=== PATIENT | female | born 1940 | race African-American/Black ===

== ENCOUNTER 2017-07-16 21:05 | Inpatient (IN) | payer MEDICARE, BC ==
[2017-07-16] MEDS: DEXTROSE 5%-0.45% NACL 1,000 ML IV (23:29)
[2017-07-17] MEDS ORDERED: INSULIN ASPART [NOVOLOG] 3 ML PEN SC (01:00)
[2017-07-17] MEDS: INSULIN ASPART [NOVOLOG] 3 ML PEN SC ×6 (01:00→21:00)
[2017-07-17] MEDS: ALBUTEROL HFA 8 GM INHALER INH ×2 (01:57→19:38)
[2017-07-17] MEDS ORDERED: ONDANSETRON 4 MG INJ IV (06:00)
[2017-07-17] MEDS ORDERED: VANCOMYCIN IV PER PHARMACY XX (06:00)
[2017-07-17] MEDS ORDERED: NACL 0.9% 3 ML SYG IV (06:00)
[2017-07-17] MEDS ORDERED: GLUCOSE GEL 15 GRAM TUBE BUCCAL (06:30)
[2017-07-17] MEDS ORDERED: GLUCAGON 1 MG INJ IM (06:30)
[2017-07-17] MEDS ORDERED: DEXTROSE 50% 50 ML SYRINGE IV ×2 (06:30)
[2017-07-17] MEDS ORDERED: GLUCOSE GEL 15 GRAM TUBE PO ×2 (06:30)
[2017-07-17] MEDS ORDERED: PENDING SANTYL ORDER FOR WOUND CARE XX (08:00)
[2017-07-17 08:57] LABS: ADD MAN DIFF? NO
[2017-07-17 09:04] LABS: EOSINOPHILS # 0.1 10^3/ul (0.0-0.5); EOSINOPHILS % 1.4 % (0.0-7.0); HEMATOCRIT 24.5 % (37.0-47.0); HEMOGLOBIN 7.8 g/dl (12.0-16.0); LYMPHOCYTES # 0.9 10^3/ul (0.8-2.9); LYMPHOCYTES % 15.4 % (15.0-51.0); MEAN CORPUSCULAR HEMOGLOBIN 30.4 pg (29.0-33.0); MEAN CORPUSCULAR HGB CONC 31.8 g/dl (32.0-37.0); MEAN CORPUSCULAR VOLUME 95.3 fl (82.0-101.0); MEAN PLATELET VOLUME 12.5 fl (7.4-10.4); MONOCYTE # 0.8 10^3/ul (0.3-0.9); MONOCYTES % 13.9 % (0.0-11.0); NEUTROPHIL # 4.1 10^3/ul (1.6-7.5); PLATELET COUNT 144 10^3/UL (140-415); RED BLOOD COUNT 2.57 10^6/ul (4.20-5.40); RED CELL DISTRIBUTION WIDTH 15.4 % (11.5-14.5)
[2017-07-17 09:04] LABS: WHITE BLOOD COUNT 5.9 10^3/ul (4.8-10.8)
[2017-07-17 09:20] LABS: IRON 46 ug/dl (35-150)
[2017-07-17 09:27] LABS: ALANINE AMINOTRANSFERASE 25 IU/L (13-69); ALBUMIN 2.2 g/dl (3.3-4.9); ALBUMIN/GLOBULIN RATIO 0.66; ALKALINE PHOSPHATASE 72 IU/L (42-121); ANION GAP 10 (8-16); ASPARTATE AMINO TRANSFERASE 26 IU/L (15-46); BILIRUBIN,INDIRECT 0.1 mg/dl (0-1.1); BILIRUBIN,TOTAL 0.1 mg/dl (0.2-1.3); BLOOD UREA NITROGEN 21 mg/dl (7-20); CALCIUM 8.2 mg/dl (8.4-10.2); CARBON DIOXIDE 34 mmol/L (21-31); CHLORIDE 97 mmol/L (97-110); CREATININE 0.96 mg/dl (0.44-1.00); GLUCOSE 149 mg/dl (70-220); POTASSIUM 3.6 mmol/L (3.5-5.1); SODIUM 137 mmol/L (135-144); TOTAL PROTEIN 5.5 g/dl (6.1-8.1)
[2017-07-17 09:30] LABS: % IRON SATURATION 31 % SAT (22-52); TOTAL IRON BINDING CAPACITY 148 ug/dl (241-421)
[2017-07-17] MEDS: CEFEPIME 1GM/50 ML (PMX) 50 ML IVPB ×2 (09:36→21:51)
[2017-07-17] MEDS: VANCOMYCIN 1 GM 250 ML IVPB ×2 (09:36→12:13)
[2017-07-17] MEDS: ENOXAPARIN 40 MG/0.4 ML SYG SC (16:14)
[2017-07-17] MEDS: DEXTROSE 5%-0.45% NACL 1,000 ML IV (16:33)
[2017-07-17] MEDS: HYDROmorphONE 2 MG/ML SYG IV (19:42)
[2017-07-17] MEDS: LORAZEPAM 2 MG INJ IV (19:43)
[2017-07-17] MEDS: LIDOCAINE 1% (MDV) 20 ML INJ SC (19:44)
[2017-07-17] MEDS: SOD CHLORIDE 0.9% 250 ML IV* (21:45)
[2017-07-18] MEDS: VANCOMYCIN 1 GM 250 ML IVPB ×2 (00:20→13:35)
[2017-07-18] MEDS: hydrALAzine 20 MG INJ IV ×3 (00:21→20:09)
[2017-07-18] MEDS: INSULIN ASPART [NOVOLOG] 3 ML PEN SC ×6 (01:00→21:00)
[2017-07-18] MEDS: DEXTROSE 5%-0.45% NACL 1,000 ML IV ×2 (01:10→20:15)
[2017-07-18] MEDS: ALBUTEROL HFA 8 GM INHALER INH ×3 (01:40→20:46)
[2017-07-18 08:52] LABS: ADD MAN DIFF? NO
[2017-07-18 09:03] LABS: EOSINOPHILS # 0.1 10^3/ul (0.0-0.5); EOSINOPHILS % 0.7 % (0.0-7.0); HEMOGLOBIN 7.9 g/dl (12.0-16.0); LYMPHOCYTES # 0.9 10^3/ul (0.8-2.9); LYMPHOCYTES % 11.2 % (15.0-51.0); MEAN CORPUSCULAR HEMOGLOBIN 30.3 pg (29.0-33.0); MEAN CORPUSCULAR HGB CONC 31.6 g/dl (32.0-37.0); MEAN CORPUSCULAR VOLUME 95.8 fl (82.0-101.0); MEAN PLATELET VOLUME 12.2 fl (7.4-10.4); MONOCYTE # 1.2 10^3/ul (0.3-0.9); MONOCYTES % 15.3 % (0.0-11.0); NEUTROPHIL # 5.5 10^3/ul (1.6-7.5); NEUTROPHILS % 72.4 % (39.0-77.0); PLATELET COUNT 150 10^3/UL (140-415); RED BLOOD COUNT 2.61 10^6/ul (4.20-5.40); RED CELL DISTRIBUTION WIDTH 15.5 % (11.5-14.5)
[2017-07-18 09:03] LABS: WHITE BLOOD COUNT 7.6 10^3/ul (4.8-10.8)
[2017-07-18] MEDS: CEFEPIME 1GM/50 ML (PMX) 50 ML IVPB ×2 (09:10→20:08)
[2017-07-18] MEDS: ENOXAPARIN 40 MG/0.4 ML SYG SC (09:22)
[2017-07-18 10:07] LABS: ANION GAP 8 (8-16); BLOOD UREA NITROGEN 18 mg/dl (7-20); CALCIUM 8.3 mg/dl (8.4-10.2); CARBON DIOXIDE 34 mmol/L (21-31); CHLORIDE 98 mmol/L (97-110); CREATININE 0.94 mg/dl (0.44-1.00); GLUCOSE 147 mg/dl (70-220); MAGNESIUM 1.7 mg/dl (1.7-2.5); PHOSPHORUS 2.6 mg/dl (2.5-4.9); POTASSIUM 3.4 mmol/L (3.5-5.1); SODIUM 137 mmol/L (135-144)
[2017-07-18] MEDS: HYDROmorphONE 0.5 MG/0.5 ML SYG IV (13:35)
[2017-07-18 14:53] LABS: HEMATOCRIT 22.1 % (37.0-47.0)
[2017-07-18] MEDS ORDERED: POTASSIUM CHLORIDE (SR) 10 MEQ TAB PO (15:30)
[2017-07-18] MEDS ORDERED: POTASSIUM CHLORIDE 50 ML IVPB (18:00)
[2017-07-18] MEDS: POTASSIUM CHLORIDE 30 MEQ in SOD CHLORIDE 0.9% 150 ML IV (21:09)
[2017-07-18 23:43] LABS: VANCOMYCIN,TROUGH 17.9 ug/ml (10.0-20.0)
[2017-07-19] MEDS: VANCOMYCIN 1 GM 250 ML IVPB (00:40)
[2017-07-19] MEDS: INSULIN ASPART [NOVOLOG] 3 ML PEN SC ×6 (00:52→20:47)
[2017-07-19] MEDS: ALBUTEROL HFA 8 GM INHALER INH ×4 (01:29→19:10)
[2017-07-19] MEDS: DEXTROSE 5%-0.45% NACL 1,000 ML IV ×2 (03:50→17:10)
[2017-07-19] MEDS: CEFEPIME 1GM/50 ML (PMX) 50 ML IVPB (08:40)
[2017-07-19 10:00] LABS: ADD MAN DIFF? NO
[2017-07-19 10:05] LABS: WHITE BLOOD COUNT 8.3 10^3/ul (4.8-10.8)
[2017-07-19 10:05] LABS: ABNORMAL IP MESSAGE 1; EOSINOPHILS % 0.2 % (0.0-7.0); HEMATOCRIT 19.3 % (37.0-47.0); LYMPHOCYTES # 0.9 10^3/ul (0.8-2.9); LYMPHOCYTES % 10.9 % (15.0-51.0); MEAN CORPUSCULAR HEMOGLOBIN 30.2 pg (29.0-33.0); MEAN CORPUSCULAR HGB CONC 32.1 g/dl (32.0-37.0); MEAN CORPUSCULAR VOLUME 94.1 fl (82.0-101.0); MEAN PLATELET VOLUME 11.9 fl (7.4-10.4); MONOCYTE # 1.3 10^3/ul (0.3-0.9); MONOCYTES % 16.2 % (0.0-11.0); NEUTROPHILS % 72.5 % (39.0-77.0); PLATELET COUNT 122 10^3/UL (140-415); RED BLOOD COUNT 2.05 10^6/ul (4.20-5.40); RED CELL DISTRIBUTION WIDTH 15.7 % (11.5-14.5)
[2017-07-19 10:09] LABS: POSITIVE DIFF @See below
[2017-07-19 10:11] LABS: HEMOGLOBIN 6.2 g/dl (12.0-16.0); PATH REVIEW? YES
[2017-07-19 10:35] LABS: ANION GAP 5 (8-16); BLOOD UREA NITROGEN 18 mg/dl (7-20); CALCIUM 7.8 mg/dl (8.4-10.2); CARBON DIOXIDE 35 mmol/L (21-31); CHLORIDE 101 mmol/L (97-110); CREATININE 1.03 mg/dl (0.44-1.00); GLUCOSE 142 mg/dl (70-220); POTASSIUM 3.6 mmol/L (3.5-5.1); SODIUM 137 mmol/L (135-144)
[2017-07-19] MEDS: ACETAMINOPHEN 650 MG SUPP PR (11:14)
[2017-07-19 12:33] LABS: IMMEDIATE SPIN CROSSMATCH 1 3
[2017-07-19] MEDS: HYDROmorphONE 0.5 MG/0.5 ML SYG IV (18:34)
[2017-07-19] MEDS: MEROPENEM 500MG/50 ML (PMX) 50 ML IVPB (20:46)
[2017-07-20] MEDS: VANCOMYCIN 1.25 GM in SOD CHLORIDE 0.9% 250 ML IVPB ×2 (00:34→23:56)
[2017-07-20] MEDS: INSULIN ASPART [NOVOLOG] 3 ML PEN SC ×6 (00:35→20:09)
[2017-07-20] MEDS: ALBUTEROL HFA 8 GM INHALER INH ×4 (01:55→19:37)
[2017-07-20] MEDS: hydrALAzine 20 MG INJ IV ×2 (04:22→11:39)
[2017-07-20] MEDS: DEXTROSE 5%-0.45% NACL 1,000 ML IV ×2 (06:30→20:10)
[2017-07-20 07:49] LABS: ADD MAN DIFF? NO
[2017-07-20 07:52] LABS: WHITE BLOOD COUNT 9.1 10^3/ul (4.8-10.8)
[2017-07-20 07:52] LABS: BASOPHILS % 0.1 % (0.0-2.0); EOSINOPHILS # 0.1 10^3/ul (0.0-0.5); EOSINOPHILS % 0.5 % (0.0-7.0); LYMPHOCYTES % 11.2 % (15.0-51.0); MEAN CORPUSCULAR HEMOGLOBIN 30.1 pg (29.0-33.0); MEAN CORPUSCULAR HGB CONC 33.3 g/dl (32.0-37.0); MEAN CORPUSCULAR VOLUME 90.3 fl (82.0-101.0); MEAN PLATELET VOLUME 11.8 fl (7.4-10.4); MONOCYTE # 1.5 10^3/ul (0.3-0.9); MONOCYTES % 16.1 % (0.0-11.0); NEUTROPHIL # 6.6 10^3/ul (1.6-7.5); NEUTROPHILS % 71.7 % (39.0-77.0); PLATELET COUNT 152 10^3/UL (140-415); RED BLOOD COUNT 2.99 10^6/ul (4.20-5.40); RED CELL DISTRIBUTION WIDTH 16.3 % (11.5-14.5)
[2017-07-20 08:25] LABS: ANION GAP 12 (8-16); BLOOD UREA NITROGEN 17 mg/dl (7-20); CALCIUM 8.4 mg/dl (8.4-10.2); CARBON DIOXIDE 32 mmol/L (21-31); CHLORIDE 100 mmol/L (97-110); CREATININE 1.01 mg/dl (0.44-1.00); GLUCOSE 145 mg/dl (70-220); POTASSIUM 3.4 mmol/L (3.5-5.1); SODIUM 141 mmol/L (135-144)
[2017-07-20] MEDS: MEROPENEM 500MG/50 ML (PMX) 50 ML IVPB ×2 (10:21→20:09)
[2017-07-20] MEDS ORDERED: POTASSIUM CHLORIDE (SR) 20 MEQ TAB PO (13:55)
[2017-07-20] MEDS: POTASSIUM CHLORIDE 100 ML IVPB (17:13)
[2017-07-21] MEDS: INSULIN ASPART [NOVOLOG] 3 ML PEN SC ×6 (00:01→21:00)
[2017-07-21] MEDS: ALBUTEROL HFA 8 GM INHALER INH ×4 (02:04→20:08)
[2017-07-21] MEDS: HYDROmorphONE 0.5 MG/0.5 ML SYG IV (04:09)
[2017-07-21] MEDS: hydrALAzine 20 MG INJ IV ×3 (04:12→11:31)
[2017-07-21 08:19] LABS: ADD MAN DIFF? NO
[2017-07-21 08:24] LABS: WHITE BLOOD COUNT 7.8 10^3/ul (4.8-10.8)
[2017-07-21 08:24] LABS: BASOPHILS % 0.1 % (0.0-2.0); EOSINOPHILS # 0.1 10^3/ul (0.0-0.5); HEMATOCRIT 23.8 % (37.0-47.0); HEMOGLOBIN 7.8 g/dl (12.0-16.0); LYMPHOCYTES # 1.3 10^3/ul (0.8-2.9); LYMPHOCYTES % 16.8 % (15.0-51.0); MEAN CORPUSCULAR HEMOGLOBIN 29.8 pg (29.0-33.0); MEAN CORPUSCULAR HGB CONC 32.8 g/dl (32.0-37.0); MEAN CORPUSCULAR VOLUME 90.8 fl (82.0-101.0); MONOCYTE # 1.3 10^3/ul (0.3-0.9); MONOCYTES % 16.2 % (0.0-11.0); NEUTROPHIL # 5.1 10^3/ul (1.6-7.5); NEUTROPHILS % 65.6 % (39.0-77.0); PLATELET COUNT 157 10^3/UL (140-415); RED BLOOD COUNT 2.62 10^6/ul (4.20-5.40); RED CELL DISTRIBUTION WIDTH 15.9 % (11.5-14.5)
[2017-07-21] MEDS: MEROPENEM 500MG/50 ML (PMX) 50 ML IVPB ×2 (08:50→21:07)
[2017-07-21] MEDS: DEXTROSE 5%-0.45% NACL 1,000 ML IV ×2 (08:54→21:10)
[2017-07-21 09:04] LABS: ANION GAP 8 (8-16); BLOOD UREA NITROGEN 16 mg/dl (7-20); CALCIUM 8.3 mg/dl (8.4-10.2); CARBON DIOXIDE 31 mmol/L (21-31); CHLORIDE 103 mmol/L (97-110); CREATININE 0.97 mg/dl (0.44-1.00); GLUCOSE 146 mg/dl (70-220); POTASSIUM 3.3 mmol/L (3.5-5.1); SODIUM 139 mmol/L (135-144)
[2017-07-21] MEDS: ACCU-CHEK XX ×3 (15:30→21:09)
[2017-07-21 16:30] LABS: ALANINE AMINOTRANSFERASE 25 IU/L (13-69); ALBUMIN 1.9 g/dl (3.3-4.9); ALBUMIN/GLOBULIN RATIO 0.63; ALKALINE PHOSPHATASE 65 IU/L (42-121); ANION GAP 7 (8-16); ASPARTATE AMINO TRANSFERASE 16 IU/L (15-46); BILIRUBIN,INDIRECT 0.1 mg/dl (0-1.1); BILIRUBIN,TOTAL 0.1 mg/dl (0.2-1.3); BLOOD UREA NITROGEN 15 mg/dl (7-20); CARBON DIOXIDE 32 mmol/L (21-31); CHLORIDE 103 mmol/L (97-110); CREATININE 1.07 mg/dl (0.44-1.00); GLUCOSE 136 mg/dl (70-220); MAGNESIUM 1.8 mg/dl (1.7-2.5); PHOSPHORUS 1.9 mg/dl (2.5-4.9); POTASSIUM 3.2 mmol/L (3.5-5.1); SODIUM 139 mmol/L (135-144); TOTAL PROTEIN 4.9 g/dl (6.1-8.1); TRIGLYCERIDES 62 mg/dl (0-149)
[2017-07-21 16:37] LABS: PREALBUMIN 5.4 mg/dl (17.6-36.0)
[2017-07-21] MEDS: POTASSIUM CHLORIDE 100 ML IVPB (17:31)
[2017-07-22] MEDS: INSULIN ASPART [NOVOLOG] 3 ML PEN SC ×6 (01:00→21:00)
[2017-07-22] MEDS: ACCU-CHEK XX ×6 (01:55→21:22)
[2017-07-22] MEDS: VANCOMYCIN 1.25 GM in SOD CHLORIDE 0.9% 250 ML IVPB (01:55)
[2017-07-22] MEDS: ALBUTEROL HFA 8 GM INHALER INH ×4 (02:26→19:52)
[2017-07-22] MEDS: MEROPENEM 500MG/50 ML (PMX) 50 ML IVPB (08:27)
[2017-07-22 08:36] LABS: ADD MAN DIFF? NO
[2017-07-22 08:44] LABS: BASOPHILS % 0.3 % (0.0-2.0); EOSINOPHILS # 0.1 10^3/ul (0.0-0.5); HEMATOCRIT 23.6 % (37.0-47.0); HEMOGLOBIN 7.7 g/dl (12.0-16.0); LYMPHOCYTES # 1.4 10^3/ul (0.8-2.9); MEAN CORPUSCULAR HEMOGLOBIN 30.1 pg (29.0-33.0); MEAN CORPUSCULAR HGB CONC 32.6 g/dl (32.0-37.0); MEAN CORPUSCULAR VOLUME 92.2 fl (82.0-101.0); MEAN PLATELET VOLUME 11.4 fl (7.4-10.4); MONOCYTE # 1.3 10^3/ul (0.3-0.9); MONOCYTES % 16.8 % (0.0-11.0); NEUTROPHIL # 5.1 10^3/ul (1.6-7.5); NEUTROPHILS % 64.4 % (39.0-77.0); PLATELET COUNT 189 10^3/UL (140-415); RED BLOOD COUNT 2.56 10^6/ul (4.20-5.40); RED CELL DISTRIBUTION WIDTH 15.6 % (11.5-14.5)
[2017-07-22 09:02] LABS: PHOSPHORUS 2.1 mg/dl (2.5-4.9)
[2017-07-22 09:02] LABS: MAGNESIUM 1.8 mg/dl (1.7-2.5)
[2017-07-22 09:09] LABS: ANION GAP 8 (8-16); BLOOD UREA NITROGEN 15 mg/dl (7-20); CALCIUM 8.2 mg/dl (8.4-10.2); CARBON DIOXIDE 33 mmol/L (21-31); CHLORIDE 103 mmol/L (97-110); CREATININE 1.01 mg/dl (0.44-1.00); GLUCOSE 134 mg/dl (70-220); POTASSIUM 3.4 mmol/L (3.5-5.1); SODIUM 141 mmol/L (135-144)
[2017-07-22] MEDS: hydrALAzine 20 MG INJ IV ×2 (09:13→11:59)
[2017-07-22] MEDS: DEXTROSE 5%-0.45% NACL 1,000 ML IV (11:50)
[2017-07-22] MEDS: LIDOCAINE 1% (MPF) 5 ML VIAL SC (12:55)
[2017-07-22] MEDS: CLONIDINE 0.2 MG/24 HR PATCH TRANSDERM (13:34)
[2017-07-22] MEDS: ACETAMINOPHEN 650 MG SUPP PR (14:40)
[2017-07-22] MEDS: POTASSIUM PHOSPHATE 15 MM in SOD CHLORIDE 0.9% 250 ML IVPB (15:00)
[2017-07-22] MEDS: CIPROFLOXACIN 400MG/D5W 200 ML IVPB (21:22)
[2017-07-23] MEDS: INSULIN ASPART [NOVOLOG] 3 ML PEN SC ×6 (01:00→21:00)
[2017-07-23] MEDS: ALBUTEROL HFA 8 GM INHALER INH ×4 (01:32→19:18)
[2017-07-23] MEDS: DEXTROSE 5%-0.45% NACL 1,000 ML IV ×2 (01:37→14:30)
[2017-07-23] MEDS: ACCU-CHEK XX ×6 (01:37→21:00)
[2017-07-23] MEDS: HYDROmorphONE 0.5 MG/0.5 ML SYG IV (03:25)
[2017-07-23] MEDS: CIPROFLOXACIN 400MG/D5W 200 ML IVPB ×2 (08:38→21:59)
[2017-07-23 09:27] LABS: ADD MAN DIFF? NO
[2017-07-23 09:34] LABS: WHITE BLOOD COUNT 7.9 10^3/ul (4.8-10.8)
[2017-07-23 09:34] LABS: BASOPHILS % 0.3 % (0.0-2.0); EOSINOPHILS # 0.1 10^3/ul (0.0-0.5); EOSINOPHILS % 1.4 % (0.0-7.0); HEMATOCRIT 25.7 % (37.0-47.0); HEMOGLOBIN 8.2 g/dl (12.0-16.0); LYMPHOCYTES # 1.4 10^3/ul (0.8-2.9); MEAN CORPUSCULAR HGB CONC 31.9 g/dl (32.0-37.0); MEAN CORPUSCULAR VOLUME 94.1 fl (82.0-101.0); MEAN PLATELET VOLUME 11.3 fl (7.4-10.4); MONOCYTE # 1.2 10^3/ul (0.3-0.9); MONOCYTES % 14.9 % (0.0-11.0); NEUTROPHIL # 5.1 10^3/ul (1.6-7.5); NEUTROPHILS % 65.1 % (39.0-77.0); PLATELET COUNT 206 10^3/UL (140-415); RED BLOOD COUNT 2.73 10^6/ul (4.20-5.40); RED CELL DISTRIBUTION WIDTH 15.8 % (11.5-14.5)
[2017-07-23 09:59] LABS: PHOSPHORUS 2.7 mg/dl (2.5-4.9)
[2017-07-23 09:59] LABS: MAGNESIUM 1.8 mg/dl (1.7-2.5)
[2017-07-23 10:07] LABS: ALANINE AMINOTRANSFERASE 23 IU/L (13-69); ALBUMIN 2.1 g/dl (3.3-4.9); ALBUMIN/GLOBULIN RATIO 0.63; ALKALINE PHOSPHATASE 69 IU/L (42-121); ANION GAP 8 (8-16); ASPARTATE AMINO TRANSFERASE 18 IU/L (15-46); BILIRUBIN,INDIRECT 0.1 mg/dl (0-1.1); BILIRUBIN,TOTAL 0.1 mg/dl (0.2-1.3); BLOOD UREA NITROGEN 15 mg/dl (7-20); CALCIUM 8.1 mg/dl (8.4-10.2); CARBON DIOXIDE 34 mmol/L (21-31); CHLORIDE 104 mmol/L (97-110); CREATININE 1.06 mg/dl (0.44-1.00); GLUCOSE 125 mg/dl (70-220); POTASSIUM 3.5 mmol/L (3.5-5.1); SODIUM 142 mmol/L (135-144); TOTAL PROTEIN 5.4 g/dl (6.1-8.1)
[2017-07-23 19:16] LABS: OCCULT BLOOD STOOL NEGATIVE (NEGATIVE)
[2017-07-24] MEDS: ACCU-CHEK XX ×6 (01:00→21:00)
[2017-07-24] MEDS: INSULIN ASPART [NOVOLOG] 3 ML PEN SC ×6 (01:00→21:00)
[2017-07-24] MEDS: ALBUTEROL HFA 8 GM INHALER INH ×4 (01:11→20:16)
[2017-07-24] MEDS: HYDROmorphONE 0.5 MG/0.5 ML SYG IV ×2 (03:57→23:07)
[2017-07-24] MEDS: DEXTROSE 5%-0.45% NACL 1,000 ML IV ×2 (03:57→21:37)
[2017-07-24] MEDS: SOD CHLORIDE 0.9% 500 ML IV (06:40)
[2017-07-24] MEDS: CIPROFLOXACIN 400MG/D5W 200 ML IVPB ×2 (09:39→21:37)
[2017-07-25] MEDS: INSULIN ASPART [NOVOLOG] 3 ML PEN SC ×4 (01:00→17:50)
[2017-07-25] MEDS: ALBUTEROL HFA 8 GM INHALER INH ×3 (01:20→20:00)
[2017-07-25] MEDS: ACCU-CHEK XX ×6 (01:58→21:00)
[2017-07-25] MEDS: DEXTROSE 5%-0.45% NACL 1,000 ML IV (06:42)
[2017-07-25] MEDS: CIPROFLOXACIN 400MG/D5W 200 ML IVPB ×2 (09:19→21:13)
[2017-07-26] MEDS: ALBUTEROL HFA 8 GM INHALER INH ×4 (01:37→19:37)
[2017-07-26] MEDS: HYDROmorphONE 0.5 MG/0.5 ML SYG IV ×2 (03:34→16:29)
[2017-07-26] MEDS: INSULIN ASPART [NOVOLOG] 3 ML PEN SC ×4 (05:46→18:00)
[2017-07-26] MEDS: CIPROFLOXACIN 400MG/D5W 200 ML IVPB ×2 (09:31→20:32)
[2017-07-26] MEDS ORDERED: BARIUM SULF 2% 450 ML BTL (BERRY SMOOTHIE) PO (13:30)
[2017-07-26] MEDS: IOHEXOL 14.3 MG(I)/ML (ADULT) BTL PO (14:22)
[2017-07-26] MEDS: IOHEXOL 300MG/ML 150 ML BTL (16:21)
[2017-07-26] MEDS: SOD CHLORIDE 0.9% 100 ML (16:21)
[2017-07-26] MEDS: hydrALAzine 20 MG INJ IV (20:32)
[2017-07-27] MEDS: ALBUTEROL HFA 8 GM INHALER INH ×4 (01:16→19:43)
[2017-07-27] MEDS: HYDROmorphONE 0.5 MG/0.5 ML SYG IV ×3 (04:29→17:40)
[2017-07-27] MEDS: INSULIN ASPART [NOVOLOG] 3 ML PEN SC ×4 (06:00→18:07)
[2017-07-27] MEDS: CIPROFLOXACIN 400MG/D5W 200 ML IVPB ×2 (09:26→21:29)
[2017-07-28] MEDS: ALBUTEROL HFA 8 GM INHALER INH ×4 (01:09→20:50)
[2017-07-28] MEDS: INSULIN ASPART [NOVOLOG] 3 ML PEN SC ×4 (06:00→17:34)
[2017-07-28] MEDS ORDERED: LIDOCAINE 1% (MDV) 20 ML INJ (06:34)
[2017-07-28 07:55] LABS: ADD MAN DIFF? NO
[2017-07-28 07:57] LABS: BASOPHILS % 0.1 % (0.0-2.0); EOSINOPHILS # 0.2 10^3/ul (0.0-0.5); EOSINOPHILS % 1.6 % (0.0-7.0); HEMATOCRIT 24.5 % (37.0-47.0); HEMOGLOBIN 7.9 g/dl (12.0-16.0); LYMPHOCYTES # 1.3 10^3/ul (0.8-2.9); MEAN CORPUSCULAR HGB CONC 32.2 g/dl (32.0-37.0); MEAN CORPUSCULAR VOLUME 93.2 fl (82.0-101.0); MEAN PLATELET VOLUME 10.8 fl (7.4-10.4); MONOCYTE # 1.1 10^3/ul (0.3-0.9); MONOCYTES % 11.8 % (0.0-11.0); NEUTROPHIL # 7.1 10^3/ul (1.6-7.5); PLATELET COUNT 215 10^3/UL (140-415); RED BLOOD COUNT 2.63 10^6/ul (4.20-5.40); RED CELL DISTRIBUTION WIDTH 14.6 % (11.5-14.5)
[2017-07-28 07:57] LABS: WHITE BLOOD COUNT 9.7 10^3/ul (4.8-10.8)
[2017-07-28 08:25] LABS: ANION GAP 9 (8-16); BLOOD UREA NITROGEN 22 mg/dl (7-20); CALCIUM 8.1 mg/dl (8.4-10.2); CARBON DIOXIDE 33 mmol/L (21-31); CHLORIDE 101 mmol/L (97-110); CREATININE 1.33 mg/dl (0.44-1.00); GLUCOSE 145 mg/dl (70-220); MAGNESIUM 1.9 mg/dl (1.7-2.5); POTASSIUM 4.3 mmol/L (3.5-5.1); SODIUM 139 mmol/L (135-144)
[2017-07-28 08:27] LABS: PREALBUMIN 6.8 mg/dl (17.6-36.0)
[2017-07-28] MEDS: CIPROFLOXACIN 400MG/D5W 200 ML IVPB ×2 (09:31→21:58)
[2017-07-28] MEDS: MULTIVITAMINS THERAPEUTIC TAB NGT (12:12)
[2017-07-28] MEDS: SOD CHLORIDE 0.9% 1,000 ML IV ×2 (12:12→17:30)
[2017-07-28] MEDS: ZINC SULFATE 220 MG CAP NGT (12:12)
[2017-07-28] MEDS: ASCORBIC ACID 500 MG TAB NGT (12:12)
[2017-07-28] MEDS: HYDROmorphONE 0.5 MG/0.5 ML SYG IV (14:29)
[2017-07-28] MEDS: LORAZEPAM 2 MG INJ IV (14:30)
[2017-07-29] MEDS: ALBUTEROL HFA 8 GM INHALER INH ×4 (01:39→20:11)
[2017-07-29] MEDS: SOD CHLORIDE 0.9% 1,000 ML IV (02:00)
[2017-07-29] MEDS: INSULIN ASPART [NOVOLOG] 3 ML PEN SC ×4 (06:00→18:22)
[2017-07-29 07:00] LABS: ADD MAN DIFF? NO
[2017-07-29 07:07] LABS: ABNORMAL IP MESSAGE 1; EOSINOPHILS # 0.2 10^3/ul (0.0-0.5); EOSINOPHILS % 1.7 % (0.0-7.0); HEMATOCRIT 18.4 % (37.0-47.0); LYMPHOCYTES # 1.3 10^3/ul (0.8-2.9); MEAN CORPUSCULAR HEMOGLOBIN 30.3 pg (29.0-33.0); MEAN CORPUSCULAR HGB CONC 32.6 g/dl (32.0-37.0); MEAN CORPUSCULAR VOLUME 92.9 fl (82.0-101.0); MEAN PLATELET VOLUME 11.7 fl (7.4-10.4); MONOCYTE # 1.1 10^3/ul (0.3-0.9); MONOCYTES % 12.3 % (0.0-11.0); NEUTROPHIL # 6.6 10^3/ul (1.6-7.5); NEUTROPHILS % 71.4 % (39.0-77.0); PLATELET COUNT 210 10^3/UL (140-415); RED BLOOD COUNT 1.98 10^6/ul (4.20-5.40); RED CELL DISTRIBUTION WIDTH 14.6 % (11.5-14.5)
[2017-07-29 07:07] LABS: WHITE BLOOD COUNT 9.3 10^3/ul (4.8-10.8)
[2017-07-29 07:14] LABS: POSITIVE DIFF @See below
[2017-07-29 07:43] LABS: ANION GAP 10 (8-16); BLOOD UREA NITROGEN 23 mg/dl (7-20); CALCIUM 7.9 mg/dl (8.4-10.2); CARBON DIOXIDE 31 mmol/L (21-31); CHLORIDE 102 mmol/L (97-110); CREATININE 1.33 mg/dl (0.44-1.00); GLUCOSE 146 mg/dl (70-220); MAGNESIUM 1.9 mg/dl (1.7-2.5); SODIUM 139 mmol/L (135-144)
[2017-07-29] MEDS: ASCORBIC ACID 500 MG TAB NGT (09:06)
[2017-07-29] MEDS: ZINC SULFATE 220 MG CAP NGT (09:06)
[2017-07-29] MEDS: MULTIVITAMINS THERAPEUTIC TAB NGT (09:06)
[2017-07-29] MEDS: CIPROFLOXACIN 400MG/D5W 200 ML IVPB (09:06)
[2017-07-29 09:39] LABS: BAND NEUTROPHILS #M 0.2 10^3/ul (0.0-0.6); BAND NEUTROPHILS % (M) 3 % (0-4); GIANT THROMBO% (M) 2 % (0-0); LYMPHOCYTES #M 1.3 10^3/ul (0.8-2.9); LYMPHOCYTES % (M) 14 % (15-51); MONOCYTE #M 0.8 10^3/ul (0.3-0.9); MONOCYTES % (M) 9 % (0-11); PLATELET ESTIMATE NORMAL; POLYCHROMASIA 3+ (0-0); REACTIVE LYMPHOCYTES% (M) 1 % (0-0); SEG NEUT #M 6.8 10^3/ul (1.6-7.5); SEGMENTED NEUTROPHILS (M) % 73 % (39-77); SMUDGE%M 17 % (0-0)
[2017-07-29] MEDS: CLONIDINE 0.2 MG/24 HR PATCH TRANSDERM (12:19)
[2017-07-29] MEDS: SOD CHLORIDE 0.45% 1,000 ML IV (14:45)
[2017-07-29] MEDS: HYDROmorphONE 0.5 MG/0.5 ML SYG IV ×2 (16:02→23:41)
[2017-07-29 18:34] LABS: IMMEDIATE SPIN CROSSMATCH 1 2
[2017-07-29] MEDS: SOD CHLORIDE 0.9% 250 ML IV* (18:42)
[2017-07-29] MEDS: ACETAMINOPHEN 325 MG TAB PO (21:31)
[2017-07-30] MEDS: INSULIN ASPART [NOVOLOG] 3 ML PEN SC ×4 (01:00→17:13)
[2017-07-30] MEDS: CIPROFLOXACIN 400MG/D5W 200 ML IVPB ×3 (01:30→22:06)
[2017-07-30] MEDS: ALBUTEROL HFA 8 GM INHALER INH ×4 (01:40→20:26)
[2017-07-30] MEDS: SOD CHLORIDE 0.45% 1,000 ML IV ×2 (03:30→15:10)
[2017-07-30] MEDS: HYDROmorphONE 0.5 MG/0.5 ML SYG IV (04:42)
[2017-07-30 06:33] LABS: ADD MAN DIFF? NO
[2017-07-30 06:37] LABS: WHITE BLOOD COUNT 9.9 10^3/ul (4.8-10.8)
[2017-07-30 06:37] LABS: BASOPHILS % 0.1 % (0.0-2.0); EOSINOPHILS # 0.2 10^3/ul (0.0-0.5); EOSINOPHILS % 1.8 % (0.0-7.0); HEMATOCRIT 26.4 % (37.0-47.0); HEMOGLOBIN 8.9 g/dl (12.0-16.0); LYMPHOCYTES # 1.6 10^3/ul (0.8-2.9); LYMPHOCYTES % 16.1 % (15.0-51.0); MEAN CORPUSCULAR HEMOGLOBIN 30.6 pg (29.0-33.0); MEAN CORPUSCULAR HGB CONC 33.7 g/dl (32.0-37.0); MEAN CORPUSCULAR VOLUME 90.7 fl (82.0-101.0); MEAN PLATELET VOLUME 11.4 fl (7.4-10.4); MONOCYTE # 1.2 10^3/ul (0.3-0.9); NEUTROPHIL # 6.9 10^3/ul (1.6-7.5); NEUTROPHILS % 69.4 % (39.0-77.0); PLATELET COUNT 199 10^3/UL (140-415); RED BLOOD COUNT 2.91 10^6/ul (4.20-5.40); RED CELL DISTRIBUTION WIDTH 14.6 % (11.5-14.5)
[2017-07-30 07:03] LABS: ANION GAP 9 (8-16); BLOOD UREA NITROGEN 27 mg/dl (7-20); CALCIUM 7.9 mg/dl (8.4-10.2); CARBON DIOXIDE 31 mmol/L (21-31); CHLORIDE 102 mmol/L (97-110); CREATININE 1.45 mg/dl (0.44-1.00); GLUCOSE 132 mg/dl (70-220); POTASSIUM 4.1 mmol/L (3.5-5.1); SODIUM 138 mmol/L (135-144)
[2017-07-30] MEDS: ZINC SULFATE 220 MG CAP NGT (09:15)
[2017-07-30] MEDS: MULTIVITAMINS THERAPEUTIC TAB NGT (09:15)
[2017-07-30] MEDS: ASCORBIC ACID 500 MG TAB NGT (09:15)
[2017-07-31] MEDS: INSULIN ASPART [NOVOLOG] 3 ML PEN SC ×4 (00:24→17:34)
[2017-07-31] MEDS: ALBUTEROL HFA 8 GM INHALER INH ×4 (02:06→20:31)
[2017-07-31] MEDS: hydrALAzine 20 MG INJ IV ×2 (05:48→10:07)
[2017-07-31] MEDS: SOD CHLORIDE 0.45% 1,000 ML IV ×3 (05:49→21:00)
[2017-07-31 08:58] LABS: ADD MAN DIFF? NO
[2017-07-31 09:01] LABS: BASOPHILS % 0.1 % (0.0-2.0); EOSINOPHILS # 0.1 10^3/ul (0.0-0.5); EOSINOPHILS % 0.9 % (0.0-7.0); HEMATOCRIT 24.7 % (37.0-47.0); HEMOGLOBIN 8.2 g/dl (12.0-16.0); LYMPHOCYTES # 1.3 10^3/ul (0.8-2.9); LYMPHOCYTES % 12.2 % (15.0-51.0); MEAN CORPUSCULAR HEMOGLOBIN 30.1 pg (29.0-33.0); MEAN CORPUSCULAR HGB CONC 33.2 g/dl (32.0-37.0); MEAN CORPUSCULAR VOLUME 90.8 fl (82.0-101.0); MEAN PLATELET VOLUME 11.9 fl (7.4-10.4); MONOCYTE # 1.2 10^3/ul (0.3-0.9); MONOCYTES % 10.8 % (0.0-11.0); NEUTROPHIL # 8.1 10^3/ul (1.6-7.5); NEUTROPHILS % 75.6 % (39.0-77.0); PLATELET COUNT 195 10^3/UL (140-415); RED BLOOD COUNT 2.72 10^6/ul (4.20-5.40); RED CELL DISTRIBUTION WIDTH 14.4 % (11.5-14.5)
[2017-07-31 09:01] LABS: WHITE BLOOD COUNT 10.7 10^3/ul (4.8-10.8)
[2017-07-31] MEDS: CIPROFLOXACIN 400MG/D5W 200 ML IVPB ×2 (09:15→20:54)
[2017-07-31] MEDS: MULTIVITAMINS THERAPEUTIC TAB NGT (09:16)
[2017-07-31] MEDS: ZINC SULFATE 220 MG CAP NGT (09:16)
[2017-07-31] MEDS: ASCORBIC ACID 500 MG TAB NGT (09:16)
[2017-07-31 09:26] LABS: ANION GAP 5 (8-16); BLOOD UREA NITROGEN 32 mg/dl (7-20); CALCIUM 7.9 mg/dl (8.4-10.2); CARBON DIOXIDE 31 mmol/L (21-31); CHLORIDE 101 mmol/L (97-110); CREATININE 1.44 mg/dl (0.44-1.00); GLUCOSE 145 mg/dl (70-220); POTASSIUM 4.1 mmol/L (3.5-5.1); SODIUM 133 mmol/L (135-144)
[2017-07-31] MEDS: LORAZEPAM 2 MG INJ IV (10:05)
[2017-07-31] MEDS: HYDROmorphONE 0.5 MG/0.5 ML SYG IV (10:06)
[2017-07-31] MEDS ORDERED: SILVER NITRATE SWAB TOP (10:30)
[2017-07-31] MEDS: SILVER NITRATE SWAB TOP (10:45)
== END 2017-07-31 22:35 | DRG 603 ==
LOC: TEL 21:05
PROVIDERS: Internal Medicine
PROC: 5A1955Z Respiratory Ventilation, Greater than 96 Consecutive Hours (ICD-10-PCS; principal; 2017-07-16)
PROC: 0H97XZX Drainage of Abdomen Skin, External Approach, Diagnostic (ICD-10-PCS; 2017-07-17)
PROC: 30233N1 Transfusion of Nonautologous Red Blood Cells into Peripheral Vein, Percutaneous Approach (ICD-10-PCS; 2017-07-18)
PROC: 02HV33Z Insertion of Infusion Device into Superior Vena Cava, Percutaneous Approach (ICD-10-PCS; 2017-07-22)
PROC: 0H97XZZ Drainage of Abdomen Skin, External Approach (ICD-10-PCS; 2017-07-29)
DX: L02.211 Cutaneous abscess of abdominal wall (principal); Z99.11 Dependence on respirator [ventilator] status; N17.9 Acute kidney failure, unspecified; J96.10 Chronic respiratory failure, unspecified whether with hypoxia or hypercapnia; E46 Unspecified protein-calorie malnutrition; Z93.0 Tracheostomy status; R65.10 Systemic inflammatory response syndrome (SIRS) of non-infectious origin without acute organ dysfunction; Z68.43 Body mass index [BMI] 50.0-59.9, adult; E88.09 Other disorders of plasma-protein metabolism, not elsewhere classified; Z93.1 Gastrostomy status; E66.01 Morbid (severe) obesity due to excess calories; R13.10 Dysphagia, unspecified; I25.10 Atherosclerotic heart disease of native coronary artery without angina pectoris; D64.9 Anemia, unspecified; E11.9 Type 2 diabetes mellitus without complications; B96.20 Unspecified Escherichia coli [E. coli] as the cause of diseases classified elsewhere; B95.7 Other staphylococcus as the cause of diseases classified elsewhere; I10 Essential (primary) hypertension; E87.6 Hypokalemia; Z79.84 Long term (current) use of oral hypoglycemic drugs
CPT/HCPCS: 36430; 36569; 71045; 74018; 74177; 76536; 76937; 80048; 80053; 80202; 82270; 82728; 82962; 83540; 83735; 84100; 84134; 84478; 85014; 85018; 85025; 86850; 86900; 86901; 86920; 87040; 87070; 87081; 87086; 92526; 92610; 94002; 94003; 94640; 94799

== ENCOUNTER 2017-08-11 10:19 | Day surgery (SDC) | payer OTHER, BC, MEDICARE ==
[~2017-08-11 10:19] MED LIST: CIPRO 400 MG/200 ML D5W IVPB
[2017-08-11] MEDS ORDERED: MIDAZOLAM 1 MG/ML 2 ML INJ (18:07)
[2017-08-11] MEDS ORDERED: FENTAnyl 50 MCG/ML VIAL (18:14)
[2017-08-11] MEDS ORDERED: LIDOCAINE 1% (MPF) 30 ML INJ (18:32)
[2017-08-11] MEDS ORDERED: HYDROmorphONE (0.2 MG/ML) 10ML SYG IV (19:00)
[2017-08-11] MEDS ORDERED: FENTAnyl 50 MCG/ML VIAL IV ×2 (19:00)
[2017-08-11] MEDS ORDERED: LABETALOL HCL 20MG INJ IV (19:00)
[2017-08-11] MEDS ORDERED: morphine 2 MG INJ IV (19:00)
[2017-08-11] MEDS ORDERED: hydrALAzine 20 MG INJ IV (19:00)
[2017-08-11] MEDS ORDERED: METOCLOPRAMIDE 10 MG INJ IV (19:00)
[2017-08-11] MEDS ORDERED: ONDANSETRON 4 MG INJ IV (19:00)
[2017-08-11] MEDS: HYDROmorphONE (0.2 MG/ML) 10ML SYG IV ×2 (19:15→19:28)
== END 2017-08-11 20:00 | disposition short-term general hospital (02) ==
LOC: SUR 20:00 → SDS 10:19
DX: L02.211 Cutaneous abscess of abdominal wall (principal); I25.10 Atherosclerotic heart disease of native coronary artery without angina pectoris; E11.9 Type 2 diabetes mellitus without complications; E78.5 Hyperlipidemia, unspecified; J45.909 Unspecified asthma, uncomplicated; J44.9 Chronic obstructive pulmonary disease, unspecified; I50.9 Heart failure, unspecified; E66.01 Morbid (severe) obesity due to excess calories; Z68.44 Body mass index [BMI] 60.0-69.9, adult; J96.10 Chronic respiratory failure, unspecified whether with hypoxia or hypercapnia; I12.9 Hypertensive chronic kidney disease with stage 1 through stage 4 chronic kidney disease, or unspecified chronic kidney disease; N18.9 Chronic kidney disease, unspecified
CPT/HCPCS: 10061; 94002; 94799

== ENCOUNTER 2017-11-08 21:15 | Emergency (ER) | payer MEDICARE, BC, OTHER ==
[2017-11-08] MEDS: HYDROCODONE/APAP (10/325) TAB PO ×2 (22:27→22:51)
[2017-11-08] MEDS: HYDROmorphONE 0.5 MG/0.5 ML SYG IM (23:16)
== END 2017-11-09 06:19 | disposition home or self-care (01) ==
LOC: E/R 11-09 06:19
DX: S09.90XA Unspecified injury of head, initial encounter (principal); J96.10 Chronic respiratory failure, unspecified whether with hypoxia or hypercapnia; I10 Essential (primary) hypertension; E11.9 Type 2 diabetes mellitus without complications; I25.10 Atherosclerotic heart disease of native coronary artery without angina pectoris; E66.01 Morbid (severe) obesity due to excess calories; W22.8XXA Striking against or struck by other objects, initial encounter; Y92.9 Unspecified place or not applicable; Z99.11 Dependence on respirator [ventilator] status; Z68.44 Body mass index [BMI] 60.0-69.9, adult; Z79.4 Long term (current) use of insulin; Z85.44 Personal history of malignant neoplasm of other female genital organs; Z79.01 Long term (current) use of anticoagulants
CPT/HCPCS: 94002; 94003; 96372; 99284-25

== ENCOUNTER 2018-02-06 01:53 | Inpatient (IN) | payer MEDICARE, BC ==
[2018-02-06 02:46] LABS: AADO2 Arterial 202.7 mmHg (7.0-24.0); Allen Test ACCEPTAB; Arterial Base Excess 5.2 mmol/L (-3.0-3); Arterial Blood Gas Oxygen Sat 99.9 mmHG (95.0-100.0); Arterial COHb 0.2 % (0.0-3.0); Arterial Fraction of Oxyhgb 99.3 % (93.0-99.0); Arterial HCO3 33.1 mmol/L (22.0-26.0); Arterial MetHb 0.4 % (0.0-1.5); Arterial pCO2 68.4 mmhg (35-45); MODE VENT - AC; Site Left Radial
[2018-02-06 03:21] LABS: ADD MAN DIFF? NO
[2018-02-06 03:24] LABS: ABNORMAL IP MESSAGE 1; BASOPHILS % 0.2 % (0.0-2.0); EOSINOPHILS % 0.2 % (0.0-7.0); HEMATOCRIT 31.5 % (37.0-47.0); LYMPHOCYTES % 5.7 % (15.0-51.0); MEAN CORPUSCULAR HEMOGLOBIN 28.8 pg (29.0-33.0); MEAN CORPUSCULAR HGB CONC 28.6 g/dl (32.0-37.0); MEAN CORPUSCULAR VOLUME 100.6 fl (82.0-101.0); MEAN PLATELET VOLUME 13.3 fl (7.4-10.4); MONOCYTE # 1.4 10^3/ul (0.3-0.9); NEUTROPHILS % 84.4 % (39.0-77.0); NUCLEATED RED BLOOD CELLS # 0.1 10^3/ul (0.0-0.0); NUCLEATED RED BLOOD CELLS% 0.3 /100WBC (0.0-0.0); PLATELET COUNT 269 10^3/UL (140-415); RED BLOOD COUNT 3.13 10^6/ul (4.20-5.40)
[2018-02-06 03:24] LABS: WHITE BLOOD COUNT 17.8 10^3/ul (4.8-10.8)
[2018-02-06 03:27] LABS: POSITIVE DIFF @See below
[2018-02-06 03:43] LABS: INR 1.33; PROTIME 16.7 Sec (11.9-14.9); PT RATIO 1.3
[2018-02-06 03:46] LABS: LACTIC ACID 0.8 mmol/L (0.5-2.0)
[2018-02-06 03:48] LABS: ALBUMIN 3.4 g/dl (3.3-4.9); ALKALINE PHOSPHATASE 185 IU/L (42-121); ANION GAP 8 (8-16); ASPARTATE AMINO TRANSFERASE 42 IU/L (15-46); BILIRUBIN,INDIRECT 0.1 mg/dl (0-1.1); BILIRUBIN,TOTAL 0.1 mg/dl (0.2-1.3); BLOOD UREA NITROGEN 65 mg/dl (7-20); CALCIUM 9.8 mg/dl (8.4-10.2); CARBON DIOXIDE 34 mmol/L (21-31); CHLORIDE 110 mmol/L (97-110); CREATININE 1.62 mg/dl (0.44-1.00); GLUCOSE 193 mg/dl (70-220); SODIUM 146 mmol/L (135-144)
[2018-02-06 03:58] LABS: TROPONIN-I 0.034 ng/ml (0.000-0.120)
[2018-02-06 04:04] LABS: ALANINE AMINOTRANSFERASE 37 IU/L (13-69)
[2018-02-06 04:25] LABS: B-TYPE NATRIURETIC PEPTIDE 7140 PG/ML (0-450)
[2018-02-06] MEDS ORDERED: NACL 0.9% 3 ML SYG IV (05:00)
[2018-02-06] MEDS ORDERED: ONDANSETRON 4 MG INJ IV (05:00)
[2018-02-06] MEDS: INSULIN ASPART [NOVOLOG] 3 ML PEN SC ×5 (05:57→20:41)
[2018-02-06] MEDS ORDERED: DILTIAZEM HCL 60 MG PO (06:00)
[2018-02-06] MEDS: DILTIAZEM 60 MG TAB PO ×2 (08:00→12:00)
[2018-02-06] MEDS: LORAZEPAM 2 MG INJ IV (08:30)
[2018-02-06] MEDS ORDERED: METHYLPREDNISOLONE 125 MG INJ IV (09:00)
[2018-02-06] MEDS ORDERED: VANCOMYCIN IV PER PHARMACY XX (09:00)
[2018-02-06] MEDS ORDERED: NON-FORMULARY/PATIENT OWN MED (Valsartan* (Diovan*) 80 MG) PO (09:00)
[2018-02-06] MEDS: INSULIN GLARGINE [LANTus] (100 UNITS/ML) SYG SC (10:01)
[2018-02-06] MEDS: CLOPIDOGREL 75 MG TAB PO (10:08)
[2018-02-06] MEDS: CEFEPIME 1GM/50 ML (PMX) 50 ML IVPB (10:08)
[2018-02-06] MEDS: METHYLPREDNISOLONE 40 MG INJ IV (10:08)
[2018-02-06] MEDS: LOSARTAN 50 MG TAB PO ×2 (10:09→20:28)
[2018-02-06] MEDS: HEPARIN 5,000 UNIT/0.5 ML VIAL SC ×2 (10:15→20:30)
[2018-02-06] MEDS: FAMOTIDINE 20 MG INJ IV (10:16)
[2018-02-06 10:18] LABS: AADO2 Arterial 157.6 mmHg (7.0-24.0); Allen Test ACCEPTAB; Arterial Base Excess 3.1 mmol/L (-3.0-3); Arterial Blood Gas Oxygen Sat 97.7 mmHG (95.0-100.0); Arterial COHb 0.1 % (0.0-3.0); Arterial Fraction of Oxyhgb 97.4 % (93.0-99.0); Arterial HCO3 26.2 mmol/L (22.0-26.0); Arterial MetHb 0.2 % (0.0-1.5); Arterial Total Hemglobin 9.3 g/dl (12.0-18.0); MODE VENT - AC; Site Left Radial
[2018-02-06] MEDS: VANCOMYCIN 2 GM in SOD CHLORIDE 0.9% 500 ML IVPB (12:16)
[2018-02-06 12:21] LABS: LACTIC ACID 0.9 mmol/L (0.5-2.0)
[2018-02-06] MEDS: ACETAMINOPHEN 325 MG TAB PO (14:32)
[2018-02-06] MEDS: AMLODIPINE 5 MG TAB GTB (17:09)
[2018-02-06] MEDS: ATORVASTATIN 20 MG TAB PO (20:28)
[2018-02-07] MEDS: INSULIN ASPART [NOVOLOG] 3 ML PEN SC ×6 (00:54→21:07)
[2018-02-07] MEDS: ACCU-CHEK XX (00:55)
[2018-02-07 04:55] LABS: ADD MAN DIFF? NO
[2018-02-07 05:00] LABS: WHITE BLOOD COUNT 14.8 10^3/ul (4.8-10.8)
[2018-02-07 05:00] LABS: ABNORMAL IP MESSAGE 1; BASOPHILS % 0.1 % (0.0-2.0); HEMATOCRIT 26.3 % (37.0-47.0); HEMOGLOBIN 7.9 g/dl (12.0-16.0); LYMPHOCYTES % 6.6 % (15.0-51.0); MEAN CORPUSCULAR HEMOGLOBIN 28.5 pg (29.0-33.0); MEAN CORPUSCULAR VOLUME 94.9 fl (82.0-101.0); MEAN PLATELET VOLUME 13.4 fl (7.4-10.4); MONOCYTE # 1.2 10^3/ul (0.3-0.9); MONOCYTES % 8.3 % (0.0-11.0); NEUTROPHIL # 12.3 10^3/ul (1.6-7.5); NEUTROPHILS % 83.1 % (39.0-77.0); NUCLEATED RED BLOOD CELLS% 0.3 /100WBC (0.0-0.0); PLATELET COUNT 243 10^3/UL (140-415); RED BLOOD COUNT 2.77 10^6/ul (4.20-5.40); RED CELL DISTRIBUTION WIDTH 16.3 % (11.5-14.5)
[2018-02-07 05:04] LABS: POSITIVE DIFF @See below
[2018-02-07 05:46] LABS: ALANINE AMINOTRANSFERASE 27 IU/L (13-69); ALBUMIN 2.7 g/dl (3.3-4.9); ALBUMIN/GLOBULIN RATIO 0.55; ALKALINE PHOSPHATASE 127 IU/L (42-121); ANION GAP 13 (8-16); ASPARTATE AMINO TRANSFERASE 26 IU/L (15-46); BILIRUBIN,INDIRECT 0.3 mg/dl (0-1.1); BILIRUBIN,TOTAL 0.3 mg/dl (0.2-1.3); BLOOD UREA NITROGEN 66 mg/dl (7-20); CALCIUM 9.7 mg/dl (8.4-10.2); CARBON DIOXIDE 25 mmol/L (21-31); CHLORIDE 112 mmol/L (97-110); CREATININE 1.76 mg/dl (0.44-1.00); GLUCOSE 175 mg/dl (70-220); MAGNESIUM 2.6 mg/dl (1.7-2.5); POTASSIUM 4.6 mmol/L (3.5-5.1); SODIUM 145 mmol/L (135-144); TOTAL PROTEIN 7.6 g/dl (6.1-8.1)
[2018-02-07] MEDS: FAMOTIDINE 20 MG INJ IV (08:42)
[2018-02-07] MEDS: METHYLPREDNISOLONE 40 MG INJ IV (08:42)
[2018-02-07] MEDS: AMLODIPINE 5 MG TAB GTB (08:42)
[2018-02-07] MEDS: CEFEPIME 1GM/50 ML (PMX) 50 ML IVPB (08:42)
[2018-02-07] MEDS: CLOPIDOGREL 75 MG TAB PO (08:43)
[2018-02-07] MEDS: HEPARIN 5,000 UNIT/0.5 ML VIAL SC ×2 (08:47→21:07)
[2018-02-07] MEDS: INSULIN GLARGINE [LANTus] (100 UNITS/ML) SYG SC (08:47)
[2018-02-07] MEDS: LOSARTAN 50 MG TAB PO ×2 (08:58→21:05)
[2018-02-07] MEDS: ACETAMINOPHEN 325 MG TAB PO (10:12)
[2018-02-07] MEDS: VANCOMYCIN 1.5 GM in SOD CHLORIDE 0.9% 250 ML IVPB (13:28)
[2018-02-07 20:27] LABS: ADD UMIC YES; UR ASCORBIC ACID NEGATIVE (NEGATIVE); UR BILIRUBIN (Dip) NEGATIVE (NEGATIVE); UR BLOOD (Dip) NEGATIVE (NEGATIVE); UR CLARITY CLEAR (CLEAR); UR COLOR YELLOW (YELLOW); UR GLUCOSE (Dip) NEGATIVE (NEGATIVE); UR KETONES (Dip) NEGATIVE (NEGATIVE); UR LEUKOCYTE ESTERASE (Dip) 1+ Leu/ul (NEGATIVE); UR NITRITE (Dip) NEGATIVE (NEGATIVE); UR NONSQUAMOUS EPITHELIAL CELL 2 /HPF (NONE SEEN); UR RBC 4 /HPF (0-5); UR SPECIFIC GRAVITY (Dip) 1.016 (1.003-1.030); UR SQUAMOUS EPITHELIAL CELL FEW /HPF (FEW); UR TOTAL PROTEIN (Dip) 2+ mg/dl (NEGATIVE); UR UROBILINOGEN (Dip) NEGATIVE (NEGATIVE); UR WBC 19 /HPF (0-5)
[2018-02-07] MEDS: ATORVASTATIN 20 MG TAB PO (21:05)
[2018-02-08] MEDS: INSULIN ASPART [NOVOLOG] 3 ML PEN SC ×6 (01:14→22:44)
[2018-02-08] MEDS: ACCU-CHEK XX (01:17)
[2018-02-08] MEDS: AMLODIPINE 5 MG TAB GTB (07:38)
[2018-02-08] MEDS: LOSARTAN 50 MG TAB PO (07:38)
[2018-02-08] MEDS: FAMOTIDINE 20 MG INJ IV (07:39)
[2018-02-08] MEDS: METHYLPREDNISOLONE 40 MG INJ IV (07:39)
[2018-02-08] MEDS: CEFEPIME 1GM/50 ML (PMX) 50 ML IVPB (07:39)
[2018-02-08] MEDS: CLOPIDOGREL 75 MG TAB PO (07:39)
[2018-02-08] MEDS: HEPARIN 5,000 UNIT/0.5 ML VIAL SC ×2 (07:51→21:35)
[2018-02-08] MEDS: INSULIN GLARGINE [LANTus] (100 UNITS/ML) SYG SC (09:09)
[2018-02-08] MEDS: ACETYLCYSTEINE 20% 4 ML VIAL NEB ×3 (11:55→20:22)
[2018-02-08] MEDS: IPRATROPIUM (HFA) 12.9 GM INHALER INH ×2 (11:56→13:36)
[2018-02-08] MEDS: ALBUTEROL HFA 8 GM INHALER INH ×3 (11:57→20:23)
[2018-02-08 16:24] LABS: ADD MAN DIFF? NO
[2018-02-08 16:27] LABS: BASOPHILS % 0.1 % (0.0-2.0); HEMATOCRIT 26.5 % (37.0-47.0); HEMOGLOBIN 7.9 g/dl (12.0-16.0); LYMPHOCYTES # 0.6 10^3/ul (0.8-2.9); LYMPHOCYTES % 5.2 % (15.0-51.0); MEAN CORPUSCULAR HEMOGLOBIN 27.8 pg (29.0-33.0); MEAN CORPUSCULAR HGB CONC 29.8 g/dl (32.0-37.0); MEAN CORPUSCULAR VOLUME 93.3 fl (82.0-101.0); MEAN PLATELET VOLUME 12.8 fl (7.4-10.4); MONOCYTE # 0.3 10^3/ul (0.3-0.9); MONOCYTES % 2.8 % (0.0-11.0); NEUTROPHIL # 10.7 10^3/ul (1.6-7.5); NEUTROPHILS % 89.1 % (39.0-77.0); NUCLEATED RED BLOOD CELLS% 0.3 /100WBC (0.0-0.0); PLATELET COUNT 227 10^3/UL (140-415); RED BLOOD COUNT 2.84 10^6/ul (4.20-5.40); RED CELL DISTRIBUTION WIDTH 16.1 % (11.5-14.5)
[2018-02-08 16:46] LABS: ANION GAP 10 (8-16); BLOOD UREA NITROGEN 72 mg/dl (7-20); CALCIUM 8.9 mg/dl (8.4-10.2); CARBON DIOXIDE 23 mmol/L (21-31); CHLORIDE 113 mmol/L (97-110); CREATININE 1.76 mg/dl (0.44-1.00); GLUCOSE 216 mg/dl (70-220); MAGNESIUM 2.8 mg/dl (1.7-2.5); PHOSPHORUS 3.8 mg/dl (2.5-4.9); POTASSIUM 4.2 mmol/L (3.5-5.1); SODIUM 142 mmol/L (135-144)
[2018-02-08] MEDS: ATORVASTATIN 20 MG TAB PO (20:56)
[2018-02-09] MEDS: ACETYLCYSTEINE 20% 4 ML VIAL NEB ×4 (01:18→19:42)
[2018-02-09] MEDS: ALBUTEROL HFA 8 GM INHALER INH ×4 (01:18→19:42)
[2018-02-09 01:30] LABS: TROPONIN-I 0.024 ng/ml (0.000-0.120)
[2018-02-09] MEDS: INSULIN ASPART [NOVOLOG] 3 ML PEN SC ×6 (02:18→20:46)
[2018-02-09] MEDS: ACCU-CHEK XX (02:18)
[2018-02-09 06:19] LABS: TROPONIN-I 0.029 ng/ml (0.000-0.120)
[2018-02-09] MEDS: CEFEPIME 1GM/50 ML (PMX) 50 ML IVPB (08:20)
[2018-02-09] MEDS: CLOPIDOGREL 75 MG TAB PO (08:21)
[2018-02-09] MEDS: LOSARTAN 50 MG TAB PO (08:21)
[2018-02-09] MEDS: AMLODIPINE 5 MG TAB GTB (08:21)
[2018-02-09] MEDS: METHYLPREDNISOLONE 40 MG INJ IV (08:22)
[2018-02-09] MEDS: FAMOTIDINE 20 MG INJ IV (08:23)
[2018-02-09] MEDS: INSULIN GLARGINE [LANTus] (100 UNITS/ML) SYG SC (08:35)
[2018-02-09] MEDS: HEPARIN 5,000 UNIT/0.5 ML VIAL SC ×2 (08:35→20:45)
[2018-02-09] MEDS ORDERED: ACETYLCYSTEINE 20% 4 ML VIAL NEB (11:00)
[2018-02-09] MEDS: VANCOMYCIN 1.5 GM in SOD CHLORIDE 0.9% 250 ML IVPB (11:35)
[2018-02-09] MEDS: IPRATROPIUM (HFA) 12.9 GM INHALER INH ×2 (13:39→19:42)
[2018-02-09] MEDS: ATORVASTATIN 20 MG TAB PO (20:43)
[2018-02-10] MEDS: ALBUTEROL HFA 8 GM INHALER INH (01:57)
[2018-02-10] MEDS: ACETYLCYSTEINE 20% 4 ML VIAL NEB ×2 (01:57→02:00)
[2018-02-10] MEDS: INSULIN ASPART [NOVOLOG] 3 ML PEN SC (02:13)
== END 2018-02-10 03:25 | DRG 871 ==
LOC: E/R 01:53 → 6WM 02-07 21:58 → TEL 04:38 → ICU 09:18
PROC: 5A1945Z Respiratory Ventilation, 24-96 Consecutive Hours (ICD-10-PCS; principal; 2018-02-06)
PROC: 4A033R1 Measurement of Arterial Saturation, Peripheral, Percutaneous Approach (ICD-10-PCS; 2018-02-06)
DX: A41.9 Sepsis, unspecified organism (principal); J18.9 Pneumonia, unspecified organism; J96.21 Acute and chronic respiratory failure with hypoxia; J96.22 Acute and chronic respiratory failure with hypercapnia; G93.49 Other encephalopathy; I50.33 Acute on chronic diastolic (congestive) heart failure; N17.9 Acute kidney failure, unspecified; J95.03 Malfunction of tracheostomy stoma; Z99.11 Dependence on respirator [ventilator] status; R40.3 Persistent vegetative state; I13.0 Hypertensive heart and chronic kidney disease with heart failure and stage 1 through stage 4 chronic kidney disease, or unspecified chronic kidney disease; Z68.42 Body mass index [BMI] 45.0-49.9, adult; E11.22 Type 2 diabetes mellitus with diabetic chronic kidney disease; N18.9 Chronic kidney disease, unspecified; E66.01 Morbid (severe) obesity due to excess calories; R13.10 Dysphagia, unspecified; E87.5 Hyperkalemia; Z93.1 Gastrostomy status; I25.10 Atherosclerotic heart disease of native coronary artery without angina pectoris; I25.2 Old myocardial infarction; Z79.4 Long term (current) use of insulin; Z95.810 Presence of automatic (implantable) cardiac defibrillator; Y83.3 Surgical operation with formation of external stoma as the cause of abnormal reaction of the patient, or of later complication, without mention of misadventure at the time of the procedure; Y92.230 Patient room in hospital as the place of occurrence of the external cause
CPT/HCPCS: 36600; 71045; 80048; 80053; 81001; 82803; 82962; 83605; 83735; 83880; 84100; 84484; 85025; 85610; 85730; 87040; 87086; 93005; 93306; 93970; 94002; 94003; 94640; 94664; 94667; 94668

== ENCOUNTER 2018-03-12 15:15 | Day surgery (SDC) | payer OTHER, BC, MEDICARE ==
[~2018-03-12 15:15] MED LIST changes: -CIPRO 400 MG/200 ML D5W IVPB; +PROPOFOL 200 MG INJ
[2018-03-12] MEDS ORDERED: FENTAnyl 25 MCG IV (18:30)
[2018-03-12] MEDS ORDERED: hydrALAzine 5 MG IV (18:30)
[2018-03-12] MEDS ORDERED: ONDANSETRON 4 MG INJ IV (18:30)
[2018-03-12] MEDS ORDERED: LABETALOL 5 MG IV (18:30)
== END 2018-03-12 18:31 ==
LOC: GIL 15:15
DX: D12.3 Benign neoplasm of transverse colon (principal); K57.90 Diverticulosis of intestine, part unspecified, without perforation or abscess without bleeding; I50.9 Heart failure, unspecified; I13.0 Hypertensive heart and chronic kidney disease with heart failure and stage 1 through stage 4 chronic kidney disease, or unspecified chronic kidney disease; N18.9 Chronic kidney disease, unspecified; E11.9 Type 2 diabetes mellitus without complications; I25.10 Atherosclerotic heart disease of native coronary artery without angina pectoris; E66.9 Obesity, unspecified; Z68.42 Body mass index [BMI] 45.0-49.9, adult; Z95.0 Presence of cardiac pacemaker; I25.2 Old myocardial infarction
CPT/HCPCS: 45380